=== PATIENT | female | born 1945 | race Caucasian/White ===

== ENCOUNTER 2023-01-04 13:36 | Outpatient (REF) | payer MEDICARE, SELFPAY ==
[2023-01-04 15:10] LABS: Bilirubin Urine NEGATIVE (NEGATIVE); Blood Urine SMALL (NEGATIVE); Clarity Urine CLOUDY (CLEAR); Color Urine YELLOW (YELLOW); Glucose Urine UA NEGATIVE (NEGATIVE); Ketones Urine NEGATIVE (NEGATIVE); Leukocyte Esterase Urine LARGE (NEGATIVE); Nitrite Urine POSITIVE (NEGATIVE); Protein Urine 100 mg/dL (NEG/TRACE); Urobilinogen Urine 0.2 EU/dL (0.2-1.0)
[2023-01-04 15:33] LABS: Bacteria Urine LARGE #/HPF (NONE SEEN); Cast Seen? NONE SEEN #/LPF (NONE SEEN); Crystals Seen? None Seen #/HPF (None Seen); Mucus Urine NONE SEEN (NONE SEEN); Squamous Epithelial Cell Urine NONE SEEN #/LPF (NONE/RARE); WBC Urine >100 #/HPF (NONE SEEN)
== END 2023-01-04 13:37 | disposition home or self-care (01) ==
LOC: LAB 13:36
PROVIDERS: PCP Family Medicine; Visit Provider Family Medicine
DX: R30.0 Dysuria (principal)
CPT/HCPCS: 81001; 87086; 87150; 87186

== ENCOUNTER 2023-01-06 13:52 | Inpatient (IN) | payer MEDICARE, SELFPAY ==
[2023-01-06] VITALS (9 sets, daily range): BP systolic 116–120; BP diastolic 67–76; PULSE 46–100; RESP 16–18; TEMP 36.3–36.4; O2SAT 91–99; BMI 24.4; BMI 24.8
--- NOTE | 2023-01-06 14:18 | ECG_ITS ---
[facility] Test Date: 2023-01-06 Pat Name: JOSSELINE ROSENBERG Department: Room: - Gender: Female [employer] Seiner: : 1945 Requested By: SOCORRO SNEED Order Number: [id number] Reading MD: SOCORRO SNEED Measurements Intervals [address] Rate: 44 P: 56 ID: [id number] QRS: 9 QRSD: 92 T: 178 QT: 390 QTc: 341 Interpretive Statements 1130 Sinus bradycardia 2231 First degree AV block [address] depression 4564 Twave abnormality, possible lateral ischemia 8305 Short QTc interval 9150 abnormal ECG No previous ECG available for comparison Electronically Signed On 01-07-2023 6:53:27 EDT by SOCORRO SNEED
--- NOTE | 2023-01-06 14:38 | CT_ITS ---
The [address] [address] Patient Name: JOSSELINE Mckeon CASE MRN: [id number] date: 1945 Sex: F Assigned Patient Location: ER Current Patient Location: ER Accession/Order Number: [id number] Exam Date: 01/06/2023 13:10 Report Date: 01/06/2023 15:28 At the request of: BUDDY ASH Procedure: CT head/brain wo con EXAM: CT head/brain wo con HISTORY: home COMPARISON: 10/22/2022 TECHNIQUE: Axial CT images were obtained of the head without intravenous contrast. Multiplanar reconstructions were performed. FINDINGS: No acute intracranial hemorrhage. No acute loss of lowe/white differentiation. 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 Chronic encephalomalacia is noted in bilateral occipital lobes. Small chronic lacunar infarctions are present in the left thalamus and right morris. The ventricles and sulci are normal in appearance. The osseous structures are unremarkable. No soft tissue abnormality identified. The paranasal sinuses and mastoid air cells are clear. IMPRESSION: 1. No acute intracranial abnormality. 2. Chronic ischemic changes unchanged from the previous exam, as described above. Electronically authenticated by: BENJAMIN BACK Date: 01/06/2023 15:28
--- NOTE | 2023-01-06 14:38 | XR_ITS ---
The [address] [address] Patient Name: JOSSELINE Mckeon CASE MRN: [id number] date: 1945 Sex: F Assigned Patient Location: ER Current Patient Location: ER Accession/Order Number: [id number] Exam Date: 01/06/2023 14:50 Report Date: 01/06/2023 15:15 At the request of: BUDDY ASH Procedure: XR chest 1V EXAMINATION: XR chest 1V HISTORY: confusion COMPARISON: 10/24/2022 TECHNIQUE: AP portable FINDINGS: LUNGS: Patchy opacities right mid lung and left lung base VASCULATURE: No increased pulmonary vasculature. PLEURA: No pneumothorax. Elevated right hemidiaphragm CARDIAC: No cardiomegaly or cardiac silhouette abnormality. MEDIASTINUM: No visible mass or adenopathy. Aortic atherosclerosis BONES: No fracture or visible bone lesion. OTHER: Negative. IMPRESSION: Right mid and left lung base infiltrates Electronically authenticated by: JONO CANAS Date: 01/06/2023 15:15
[2023-01-06 15:03] LABS: Basophils Percent Auto 0.5 % (0.2-2.0); Eosinophils Absolute Auto 0.2 10^3/uL (0.0-0.7); Eosinophils Percent Auto 2.3 % (0.9-7.0); Hematocrit 34.2 % (36.0-48.0); Hemoglobin 10.7 g/dL (12.0-16.0); Immature Granulocytes Abs Auto 0.02 10^3/uL (0.00-0.03); Immature Granulocytes Pct Auto 0.3 % (0.0-0.5); Lymphocytes Percent Auto 27.3 % (20.5-60.0); Mean Corpuscular HGB Conc 31.3 g/dL (29.9-35.2); Mean Corpuscular Hemoglobin 28.2 pg (26.7-34.0); Mean Platelet Volume 10.7 fL (9.5-13.5); Monocytes Absolute Auto 0.4 10^3/uL (0.3-0.8); Monocytes Percent Auto 5.3 % (1.7-12.0); Neutrophils Absolute Auto 4.7 10^3/uL (1.4-6.5); Neutrophils Percent Auto 64.3 % (43.0-75.0); Platelet Count 137 10^3/uL (150-450); Red Cell Distribution Width 16.4 % (11.0-15.0); White Blood Count 7.3 10^3/uL (4.0-11.0)
[2023-01-06 15:17] LABS: Acetone NEGATIVE (NEGATIVE)
[2023-01-06 15:18] LABS: INR 1.02; Prothrombin Time 10.8 sec (9.0-11.6)
[2023-01-06 15:28] LABS: Alanine Aminotransferase 183 U/L (14-59); Albumin Globulin Ratio 0.7; Alkaline Phosphatase 202 U/L (46-116); Anion Gap 10.9; Aspartate Amino Transferase 83 U/L (15-37); BUN Creatinine Ratio 19.9; Bilirubin Total 0.4 mg/dL (0.2-1.0); Calcium 9.7 mg/dL (8.5-10.1); Carbon Dioxide 22.3 mmol/L (21.0-32.0); Chloride 103 mmol/L (98-107); Estimated GFR (African America 26 (>=60); Estimated GFR (Non-African Ame 22 (>=60); Globulin 4.5 g/dL; Glucose 232 mg/dL (74-106); Potassium 4.2 mmol/L (3.5-5.1); Sodium 132 mmol/L (136-145); Total Protein 7.5 g/dL (6.4-8.2); Troponin I High Sensitivity 18.3 pg/mL (4.0-51.3)
[2023-01-06 15:30] LABS: Lactate/Lactic Acid 2.2 mmol/L (0.4-2.0)
[2023-01-06 15:37] LABS: Glucometer 259 mg/dL (74-106)
[2023-01-06] MEDS: ONDANSETRON PF 4 MG/2 ML VIAL IV (15:38)
[2023-01-06] MEDS: 0.9 % SODIUM CHLORIDE 1,000 ML 1000 ML IV (15:39)
[2023-01-06] MEDS: IMIPENEM/CILASTATIN SODIUM 1,000 MG in 0.9 % SODIUM CHLORIDE 100 ML 100 MG IV (15:40)
--- NOTE | 2023-01-06 15:55 | ED.GENADUL1 ---
HPI - General Adult General Chief complaint: Altered Mental Status Stated complaint: UTI COMPLAINTS Time Seen by Provider: 01/06/23 14:00 Source: patient and family Mode of arrival: Wheelchair Limitations: no limitations History of Present Illness HPI narrative: 77-year-old female was brought to the emergency room by family members with chief complaint of a known urinary tract infection and altered mental status. Patient's family take a urine into the doctor's office two days ago. Doctor's office notified them today and she positive urinary tract infection with Escherichia coli. Patient also has a history of confusion, altered mental status. They states she's had decreased by mouth intake and confusion over last forty-eight hours. Patient is alert and will answer questions about self. Otherwise inappropriate answers. Related Data Home Medications Medication Instructions Recorded Confirmed amitriptyline 50 mg tablet 50 mg PO .at bedtime 01/06/23 01/06/23 aspirin 162.5 mg capsule,extended 162 mg PO DAILY 01/06/23 01/06/23 release 24 hr budesonide 0.5 mg/2 mL suspension 0.5 mg inhalation BID 01/06/23 01/06/23 for nebulization (Pulmicort) carvedilol 6.25 mg tablet 6.25 mg PO BID 01/06/23 01/06/23 cetirizine 10 mg capsule (Zyrtec) 10 mg PO DAILY PRN allergy symptoms 01/06/23 01/06/23 hydralazine 10 mg tablet 10 mg PO TID 01/06/23 01/06/23 insulin glargine 100 unit/mL (3 40 unit subcut DAILY 01/06/23 01/06/23 mL) subcutaneous pen (Lantus Solostar U-100 Insulin) insulin lispro 100 unit/mL 1 sliding scale dose subcut 01/06/23 01/06/23 subcutaneous solution USEASDIRECTD levalbuterol HCl 1.25 mg/3 mL 1.25 mg inhalation Q8H 01/06/23 01/06/23 solution for nebulization levothyroxine 50 mcg capsule 50 mcg PO DAILY 01/06/23 01/06/23 liothyronine 5 mcg tablet 10 mcg PO DAILY 01/06/23 01/06/23 lorazepam 0.5 mg tablet 0.5 mg PO BID PRN anxiety 01/06/23 01/06/23 lorazepam 2 mg tablet 2 mg PO .at bedtime 01/06/23 01/06/23 memantine 28 mg capsule 28 mg PO DAILY 01/06/23 01/06/23 sprinkle,extended release 24hr montelukast 10 mg tablet 10 mg PO QPM 01/06/23 01/06/23 (Singulair) pantoprazole 40 mg tablet,delayed 40 mg PO DAILY 01/06/23 01/06/23 release promethazine 25 mg tablet 25 mg PO Q4H PRN nausea 01/06/23 01/06/23 rosuvastatin 40 mg tablet 40 mg PO DAILY 01/06/23 01/06/23 tiotropium bromide 2.5 2 inh inhalation DAILY 01/06/23 01/06/23 mcg/actuation mist for inhalation (Spiriva Respimat) tramadol 50 mg tablet 50 mg PO Q8H PRN pain 01/06/23 01/06/23 Allergies Allergy/AdvReac Type Severity Reaction Status Date / Time doxycycline Allergy Severe Nausea Verified 01/06/23 15:34 ciprofloxacin [From Cipro] AdvReac Severe Nausea Verified 01/06/23 15:34 glycerin AdvReac Severe Diarrhea Verified 01/06/23 15:34 ibuprofen [From Motrin] AdvReac Severe Nausea Verified 01/06/23 15:34 metformin AdvReac Severe Nausea Verified 01/06/23 15:34 moxifloxacin [From Avelox] AdvReac Severe Diarrhea Verified 01/06/23 15:34 sulfamethoxazole AdvReac Severe Nausea Verified 01/06/23 15:34 [From Bactrim] trimethoprim [From Bactrim] AdvReac Severe Nausea Verified 01/06/23 15:34 Review of Systems ROS Narrative All Systems are negative except as noted/marked.All systems reviewed and otherwise negative Exam Narrative Exam Narrative: Patient is a All Systems are negative except as noted/marked.All systems reviewed and otherwise negative Nurses note and vital signs reviewed and patient is not hypoxic. General: The patient appears confused dehydrated.. Patient is resting comfortably on cart. Skin: Warm, dry, no pallor noted. There is no rash noted. Head: Normocephalic, atraumatic Eye: Normal conjunctiva, no drainage, EOMI. PERRL Ears, Nose, Mouth, and Throat: oral mucosa is Dry. Nares patent. Mouth without vesicles. Ear canals patent. Tm's without Erythema Cardiovascular: Sinus bradycardia Respiratory: Patient is in no distress, no accessory muscle use, lungs are clear to auscultation, no wheezing, rales or rhonchi Back: non-tender, no CVA tenderness bilaterally to percussion. GI: Normal bowel sounds, no tenderness to palpation, no masses appreciated. No rebound, guarding, or rigidity noted. Musculoskeletal: The patient has no evidence of calf tenderness, no pitting edema, symmetrical pulses noted bilaterally Neurological: A&O Self Psychiatric: Fusion history of dementia Constitutional Vital Signs, click to edit/add: Last Vital Signs Temp 97.4 F L 01/06/23 14:17 Pulse 53 L 01/06/23 16:35 Resp 16 01/06/23 14:17 BP 119/67 01/06/23 14:17 Pulse Ox 95 01/06/23 14:17 Course Vital Signs Vital signs: Vital Signs Temperature 97.4 F L 01/06/23 14:17 Pulse Rate 48 L 01/06/23 14:17 Respiratory Rate 16 01/06/23 14:17 Blood Pressure 119/67 01/06/23 14:17 Pulse Oximetry 95 01/06/23 14:17 Temperature 97.4 F L 01/06/23 14:17 Pulse Rate 53 L 01/06/23 16:35 Respiratory Rate 16 01/06/23 14:17 Blood Pressure 119/67 01/06/23 14:17 Pulse Oximetry 95 01/06/23 14:17 Medical Decision Making [facility] Narrative Medical decision making narrative: Agent presents emergency room chief complaint of a known urinary tract infection. Urinalysis culture was positive for Escherichia coli. Cultures the bilirubin was reviewed patient was started here in the emergency room with IV imipenem. Patient blood work is reviewed she hasn't low sodium of one thirty-two elevated BUN/creatinine forty-four and 2.21 slightly higher than previous BUN/creatinine in October 2022. Anterior cruciate ligament tear also elevated today at eighty-three or one eighty-three. Patient is also positive for lactic acid 2.2. She has no white blood cell count. Chest x-ray shows a bilateral pneumonia as well. Patient is a Dr. Sexton patient. Dr. thornton spoke to Dr. june regarding this patient's care. He agrees with plan of care for admission for this patient. Diagnosis of dehydration, altered mental status, pneumonia, hyponatremia and urinary tract infection. IV antibiotics were started here in emergency room. Initial lactic acid is known. Repeat lactic acid is pending.She was also given IV fluids here in the emergency room. She is stable at time. EKG was reviewed and showed a sinus bradycardia with first-degree AV block. This is new compared to previous EKG on October 22. She is rate was a sinus bradycardia at 44 bpm. Medical Records Medical records reviewed: Yes I reviewed the patient's medical records Lab Data Lab results reviewed: Yes I reviewed the patient's lab results Labs: Lab Results 01/06/23 01/06/23 Range/Units 14:19 15:28 WBC 7.3 (4.0-11.0) 10^3/uL RBC 3.80 L (4.20-5.40) 10^6/uL Hgb 10.7 L (12.0-16.0) g/dL Hct 34.2 L (36.0-48.0) % MCV 90.0 (81.0-99.0) fL MCH 28.2 (26.7-34.0) pg MCHC 31.3 (29.9-35.2) g/dL RDW 16.4 H (11.0-15.0) % Plt Count 137 L (150-450) 10^3/uL MPV 10.7 (9.5-13.5) fL Neut % (Auto) 64.3 (43.0-75.0) % Lymph % (Auto) 27.3 (20.5-60.0) % Vermilion % (Auto) 5.3 (1.7-12.0) % Eos % (Auto) 2.3 (0.9-7.0) % Baso % (Auto) 0.5 (0.2-2.0) % Neut # (Auto) 4.7 (1.4-6.5) 10^3/uL Lymph # (Auto) 2.0 (1.2-3.8) 10^3/uL Vermilion # (Auto) 0.4 (0.3-0.8) 10^3/uL Eos # (Auto) 0.2 (0.0-0.7) 10^3/uL Baso # (Auto) 0.0 (0.0-0.1) 10^3/uL Abs Immat Gran (auto) 0.02 (0.00-0.03) 10^3/uL Imm/Tot Granulo (auto) 0.3 (0.0-0.5) % PT 10.8 (9.0-11.6) sec INR 1.02 Sodium 132 L (136-145) mmol/L Potassium 4.2 (3.5-5.1) mmol/L Chloride 103 (98-107) mmol/L Carbon Dioxide 22.3 (21.0-32.0) mmol/L Anion Gap 10.9 BUN 44.0 H (7.0-18.0) mg/dL Creatinine 2.21 H (0.55-1.02) mg/dL Est GFR ( Amer) 26 L (>=60) Est GFR (Non-Af Amer) 22 L (>=60) BUN/Creatinine Ratio 19.9 Glucose 232 H (74-106) mg/dL Lactate 2.2 H* (0.4-2.0) mmol/L Calcium 9.7 (8.5-10.1) mg/dL Total Bilirubin 0.4 (0.2-1.0) mg/dL AST 83 H (15-37) U/L ALT 183 H (14-59) U/L Alkaline Phosphatase 202 H (46-116) U/L Troponin I High Sens 18.3 (4.0-51.3) pg/mL Total Protein 7.5 (6.4-8.2) g/dL Albumin 3.0 L (3.4-5.0) g/dL Globulin 4.5 g/dL Albumin/Globulin Ratio 0.7 Acetone, Qual Negative (NEGATIVE) POC Glucose 259 H (74-106) mg/dL ECG Data Attestation: ?I have reviewed the pertinent ECG results. Interpretation: 1426 Is bradycardia with a rate of [address] elevation or depression, decreased right compared to EKG on 10/22/2022. Discharge Plan Discharge Chief Complaint: Altered Mental Status Clinical Impression: Chronic renal insufficiency, Acute UTI, Altered mental status, Pneumonia, Acute hyponatremia Patient Disposition: Admitted As Inpatient Time of Disposition Decision: 15:53 Condition: Fair
[2023-01-06 18:15] LABS: Lactate/Lactic Acid 1.2 mmol/L (0.4-2.0)
[2023-01-06] MEDS: LACTATED RINGER'S SOLUTION 1,000 ML 125 ML IV (18:39)
[2023-01-06] MEDS: LEVALBUTEROL HCL 1.25 MG/3 ML VIAL NEB IH (20:22)
[2023-01-06] MEDS: IPRATROPIUM BROMIDE 0.5 MG/2.5 ML VIAL.NEB IH (20:23)
[2023-01-06] MEDS: BUDESONIDE 0.5 MG/2 ML AMPULE NEB IH (20:23)
[2023-01-06] MEDS: TRAMADOL HCL 50 MG TABLET PO (20:56)
[2023-01-06] MEDS: CARVEDILOL 6.25 MG TABLET PO (20:56)
[2023-01-06] MEDS: MONTELUKAST SODIUM 10 MG TABLET PO (20:56)
[2023-01-06] MEDS: AMITRIPTYLINE HCL 50 MG TABLET PO (20:56)
[2023-01-06] MEDS: INSULIN ASPART 300 UNIT/3 ML PEN SUBQ (20:59)
[2023-01-06] MEDS: LORAZEPAM 1 MG TABLET 2 MG PO (21:04)
[2023-01-06] MEDS: L. ACIDOPHILUS/L.BULGARICUS 1 PACKET GRAN.PACK PO (21:15)
[2023-01-07] VITALS (20 sets, daily range): BP systolic 133–156; BP diastolic 73–80; PULSE 47–67; RESP 14–18; TEMP 36.6–38; O2SAT 83–98
[2023-01-07] MEDS: LEVALBUTEROL HCL 1.25 MG/3 ML VIAL NEB IH ×4 (04:30→20:54)
[2023-01-07] MEDS: IPRATROPIUM BROMIDE 0.5 MG/2.5 ML VIAL.NEB IH ×4 (04:30→20:54)
[2023-01-07 06:11] LABS: Basophils Percent Auto 0.4 % (0.2-2.0); Eosinophils Absolute Auto 0.2 10^3/uL (0.0-0.7); Eosinophils Percent Auto 1.9 % (0.9-7.0); Immature Granulocytes Abs Auto 0.02 10^3/uL (0.00-0.03); Immature Granulocytes Pct Auto 0.3 % (0.0-0.5); Lymphocytes Absolute Auto 1.2 10^3/uL (1.2-3.8); Lymphocytes Percent Auto 15.3 % (20.5-60.0); Mean Corpuscular HGB Conc 31.3 g/dL (29.9-35.2); Mean Corpuscular Hemoglobin 28.4 pg (26.7-34.0); Mean Corpuscular Volume 90.9 fL (81.0-99.0); Monocytes Absolute Auto 0.5 10^3/uL (0.3-0.8); Monocytes Percent Auto 5.8 % (1.7-12.0); Neutrophils Percent Auto 76.3 % (43.0-75.0); Platelet Count 116 10^3/uL (150-450); Red Blood Count 3.52 10^6/uL (4.20-5.40); Red Cell Distribution Width 16.3 % (11.0-15.0); White Blood Count 7.9 10^3/uL (4.0-11.0)
[2023-01-07] MEDS: LACTATED RINGER'S SOLUTION 1,000 ML 125 ML IV ×3 (06:11→22:06)
[2023-01-07 06:18] LABS: Anion Gap 15.4; Carbon Dioxide 19.2 mmol/L (21.0-32.0); Chloride 105 mmol/L (98-107); Glucose 138 mg/dL (74-106); Potassium 4.6 mmol/L (3.5-5.1); Sodium 135 mmol/L (136-145)
[2023-01-07 06:19] LABS: Alanine Aminotransferase 184 U/L (14-59); Albumin Globulin Ratio 0.6; Albumin Level 2.5 g/dL (3.4-5.0); Alkaline Phosphatase 214 U/L (46-116); Aspartate Amino Transferase 144 U/L (15-37); BUN Creatinine Ratio 19.9; Bilirubin Total 0.6 mg/dL (0.2-1.0); Calcium 9.1 mg/dL (8.5-10.1); Estimated GFR (African America 33 (>=60); Estimated GFR (Non-African Ame 27 (>=60); Globulin 4.3 g/dL; Magnesium 1.7 mg/dL (1.8-2.4); Total Protein 6.8 g/dL (6.4-8.2)
[2023-01-07] MEDS: IMIPENEM/CILASTATIN SODIUM 500 MG in 0.9 % SODIUM CHLORIDE 100 ML 100 MG IV ×2 (08:44→22:14)
[2023-01-07] MEDS: OMEPRAZOLE 40 MG CAPSULE.DR PO (09:16)
[2023-01-07] MEDS: LIOTHYRONINE SODIUM 5 MCG TABLET 10 MCG PO (09:16)
[2023-01-07] MEDS: LEVOTHYROXINE SODIUM 25 MCG TABLET 50 MCG PO (09:16)
[2023-01-07] MEDS: MEMANTINE HCL 28 MG CAP XR PO (09:16)
[2023-01-07] MEDS: CARVEDILOL 6.25 MG TABLET PO (09:16)
[2023-01-07] MEDS: CETIRIZINE HCL 10 MG TABLET PO (09:16)
[2023-01-07] MEDS: ASPIRIN 81 MG TABLET.DR 162 MG PO (09:16)
--- NOTE | 2023-01-07 09:51 | P.HP_ITS ---
H&P: HPI History of Present Illness Chief complaint: UTI COMPLAINTS dx-uti confusion Narrative: Patient has been having increasing weakness at home. Culture was obtained as an outpatient. Organism is a resistant organism sensitive only to oral Macrobid but patient's condition has been deteriorating significant dehydration and will admit patient for IV antibiotics Review of Systems ROS Constitutional Denies: fever or chills Eyes Denies: change in vision Cardiovascular Denies: chest pain or palpitations Respiratory Denies: shortness of breath or cough Musculoskeletal Denies: back pain PFSH PFS Family History (Updated 01/06/23 @ 17:14 by Carolina Holley RN) Mother Family history of CHF (congestive heart failure) Family history of hypertension Family history of myocardial infarction Father Family history of COPD (chronic obstructive pulmonary disease) Sister Family history of stroke Other Family history of cancer Family history of diabetes mellitus Meds Home Medications and Allergies Home Medications Medication Instructions Recorded Confirmed Type amitriptyline 50 mg tablet 50 mg PO .at bedtime 01/06/23 01/06/23 History aspirin 162.5 mg capsule,extended 162 mg PO DAILY 01/06/23 01/06/23 History release 24 hr budesonide 0.5 mg/2 mL suspension 0.5 mg inhalation BID 01/06/23 01/06/23 History for nebulization (Pulmicort) carvedilol 6.25 mg tablet 6.25 mg PO BID 01/06/23 01/06/23 History cetirizine 10 mg capsule (Zyrtec) 10 mg PO DAILY PRN allergy symptoms 01/06/23 01/06/23 History hydralazine 10 mg tablet 10 mg PO TID 01/06/23 01/06/23 History insulin glargine 100 unit/mL (3 40 unit subcut DAILY 01/06/23 01/06/23 History mL) subcutaneous pen (Lantus Solostar U-100 Insulin) insulin lispro 100 unit/mL 1 sliding scale dose subcut 01/06/23 01/06/23 History subcutaneous solution USEASDIRECTD levalbuterol HCl 1.25 mg/3 mL 1.25 mg inhalation Q8H 01/06/23 01/06/23 History solution for nebulization levothyroxine 50 mcg capsule 50 mcg PO DAILY 01/06/23 01/06/23 History liothyronine 5 mcg tablet 10 mcg PO DAILY 01/06/23 01/06/23 History lorazepam 0.5 mg tablet 0.5 mg PO BID PRN anxiety 01/06/23 01/06/23 History lorazepam 2 mg tablet 2 mg PO .at bedtime 01/06/23 01/06/23 History memantine 28 mg capsule 28 mg PO DAILY 01/06/23 01/06/23 History sprinkle,extended release 24hr montelukast 10 mg tablet 10 mg PO QPM 01/06/23 01/06/23 History (Singulair) pantoprazole 40 mg tablet,delayed 40 mg PO DAILY 01/06/23 01/06/23 History release promethazine 25 mg tablet 25 mg PO Q4H PRN nausea 01/06/23 01/06/23 History rosuvastatin 40 mg tablet 40 mg PO DAILY 01/06/23 01/06/23 History tiotropium bromide 2.5 2 inh inhalation DAILY 01/06/23 01/06/23 History mcg/actuation mist for inhalation (Spiriva Respimat) tramadol 50 mg tablet 50 mg PO Q8H PRN pain 01/06/23 01/06/23 History Allergies Allergy/AdvReac Type Severity Reaction Status Date / Time doxycycline Allergy Severe Nausea Verified 01/06/23 15:34 ciprofloxacin [From Cipro] AdvReac Severe Nausea Verified 01/06/23 15:34 glycerin AdvReac Severe Diarrhea Verified 01/06/23 15:34 ibuprofen [From Motrin] AdvReac Severe Nausea Verified 01/06/23 15:34 metformin AdvReac Severe Nausea Verified 01/06/23 15:34 moxifloxacin [From Avelox] AdvReac Severe Diarrhea Verified 01/06/23 15:34 sulfamethoxazole AdvReac Severe Nausea Verified 01/06/23 15:34 [From Bactrim] trimethoprim [From Bactrim] AdvReac Severe Nausea Verified 01/06/23 15:34 Exam Constitutional Vital Signs, click to edit/add: Last Vital Signs Temp 100.4 F H 01/07/23 06:00 Pulse 52 L 01/07/23 07:53 Resp 18 01/07/23 06:00 BP 133/74 H 01/07/23 06:00 Pulse Ox 97 01/07/23 06:00 O2 Del Method Nasal Cannula 01/07/23 06:00 O2 Flow Rate 2 01/07/23 06:00 Documenting provider has reviewed patient's vital signs: yes Common normals: apparent distress and negative for oriented x3 General appearance: lethargic; not comfortable Chest Common normals: inspection of chest normal Cardio Common normals: regular rate and regular rhythm GI Common normals: soft to palpation; tender Palpation: tender and guarding Extremity Common normals: normal to inspection Results Labs Labs: Short CBC 01/06/23 01/07/23 Range/Units 14:19 04:00 WBC 7.3 7.9 (4.0-11.0) 10^3/uL Hgb 10.7 L 10.0 L (12.0-16.0) g/dL Hct 34.2 L 32.0 L (36.0-48.0) % Plt Count 137 L 116 L (150-450) 10^3/uL BMP 01/06/23 01/07/23 14:19 04:00 Sodium 132 L 135 L Potassium 4.2 4.6 Chloride 103 105 Carbon Dioxide 22.3 19.2 L BUN 44.0 H 36.0 H Creatinine 2.21 H 1.81 H Glucose 232 H 138 H Calcium 9.7 9.1 Liver Function 01/06/23 01/07/23 Range/Units 14:19 04:00 Total Bilirubin 0.4 0.6 (0.2-1.0) mg/dL AST 83 H 144 H (15-37) U/L ALT 183 H 184 H (14-59) U/L Alkaline Phosphatase 202 H 214 H (46-116) U/L Albumin 3.0 L 2.5 L (3.4-5.0) g/dL Assessment and Plan Assessment and Plan (1) Acute UTI: (2) Chronic renal insufficiency: (3) Altered mental status: (4) Acute hyponatremia: (5) Elevated liver enzymes: (6) Thrombocytopenia: (7) Anemia, chronic renal failure: (8) Hypomagnesemia: Plan Altered mental status secondary to acute UTI with significant dehydration fe ril, thrombocytopenia, acute kidney injury on top of chronic kidney disease and elevated liver function test-this is a multiple drug-resistant infection, is sensitive to imipenem so patient was started on that yesterday. Overall patient does not appear significantly improved from the previous day. Continue with current medications noted on sensitivities Thrombocytopenia-complicated by the above-monitor daily Iron deficiency anemia on top of anemia of chronic kidney disease-monitor daily Bradycardia-Not related to medications at this point, will monitor daily COPD-doubt acute exacerbation will maintain home medications Hypomagnesemia-May need supplementation Elevated liver function test-some mild diffuse abdominal tenderness-check ultrasound Unable to improve patient over the first 24 hours so maintain patient as inpatient status with continuous medical management likely lasting 2 to 3 days
--- NOTE | 2023-01-07 09:52 | US_ITS ---
The [address] [address] Patient Name: JOSSELINE G CASE MRN: [id number] date: 1945 Sex: F Assigned Patient Location: Current Patient Location: Accession/Order Number: [id number] Exam Date: 01/07/2023 10:45 Report Date: 01/07/2023 11:24 At the request of: SOCORRO SNEED Procedure: US right upper quadrant EXAM: US right upper quadrant HISTORY: elevated liver COMPARISON: None. TECHNIQUE: Right upper abdominal ultrasound including grayscale and Doppler imaging. FINDINGS: Right/left pleural space: No effusion. Liver: Small liver with coarse echotexture and mildly nodular contour, likely fibrotic changes/early cirrhosis. Correlation with elastography US is recommended. Portal vein: Normal hepatopedal flow. Gallbladder: Cholecystectomy. Focal tenderness: No right upper quadrant tenderness. Intrahepatic biliary ducts: No intrahepatic biliary duct dilatation. Extra hepatic biliary duct measures 14 mm. Pancreas: No abnormality demonstrated. Right kidney: Increased cortical echogenicity. No hydronephrosis. The right kidney measures 8.6 cm in length. There is a 1.7 cm anechoic structure in the upper pole of the kidney, representing a simple cyst. Spleen: Normal size. Aorta: No aneurysm. Peritoneal space: No ascites visualized within the visualized upper abdomen. Additional findings: None. IMPRESSION: Small liver with coarse echotexture and mildly nodular contour, likely fibrotic changes/early cirrhosis. Correlation with elastography US is recommended. Increased right renal echogenicity, may represent medical renal disease. Electronically authenticated by: JOHANNA SHAH Date: 01/07/2023 11:24
[2023-01-07] MEDS: BUDESONIDE 0.5 MG/2 ML AMPULE NEB IH ×2 (10:14→20:54)
--- NOTE | 2023-01-07 10:19 | RESP.RT ---
Found pt with NC out of nares. Replaced NC on 2L and SpO2 recovered to 93%
[2023-01-08] VITALS (21 sets, daily range): BP systolic 112–135; BP diastolic 72–81; PULSE 49–59; RESP 16–20; TEMP 36.8–37.6; O2SAT 90–98
[2023-01-08] MEDS: ACETAMINOPHEN 500 MG TABLET 1000 MG PO (01:26)
[2023-01-08] MEDS: IPRATROPIUM BROMIDE 0.5 MG/2.5 ML VIAL.NEB IH ×4 (04:12→20:37)
[2023-01-08] MEDS: LEVALBUTEROL HCL 1.25 MG/3 ML VIAL NEB IH ×4 (04:12→20:36)
[2023-01-08 05:06] LABS: Basophils Percent Auto 0.3 % (0.2-2.0); Eosinophils Absolute Auto 0.1 10^3/uL (0.0-0.7); Eosinophils Percent Auto 1.9 % (0.9-7.0); Hematocrit 32.5 % (36.0-48.0); Hemoglobin 9.7 g/dL (12.0-16.0); Immature Granulocytes Abs Auto 0.02 10^3/uL (0.00-0.03); Immature Granulocytes Pct Auto 0.3 % (0.0-0.5); Lymphocytes Absolute Auto 1.3 10^3/uL (1.2-3.8); Lymphocytes Percent Auto 22.4 % (20.5-60.0); Mean Corpuscular HGB Conc 29.8 g/dL (29.9-35.2); Mean Corpuscular Hemoglobin 27.6 pg (26.7-34.0); Mean Corpuscular Volume 92.6 fL (81.0-99.0); Mean Platelet Volume 10.9 fL (9.5-13.5); Monocytes Absolute Auto 0.3 10^3/uL (0.3-0.8); Monocytes Percent Auto 5.6 % (1.7-12.0); Neutrophils Absolute Auto 4.1 10^3/uL (1.4-6.5); Neutrophils Percent Auto 69.5 % (43.0-75.0); Platelet Count 121 10^3/uL (150-450); Red Blood Count 3.51 10^6/uL (4.20-5.40); Red Cell Distribution Width 16.1 % (11.0-15.0); White Blood Count 5.9 10^3/uL (4.0-11.0)
[2023-01-08] MEDS: LACTATED RINGER'S SOLUTION 1,000 ML 125 ML IV (05:30)
[2023-01-08 05:44] LABS: Alanine Aminotransferase 124 U/L (14-59); Albumin Globulin Ratio 0.5; Albumin Level 2.3 g/dL (3.4-5.0); Alkaline Phosphatase 196 U/L (46-116); Anion Gap 10.2; Aspartate Amino Transferase 64 U/L (15-37); BUN Creatinine Ratio 15.5; Bilirubin Total 0.3 mg/dL (0.2-1.0); Calcium 9.2 mg/dL (8.5-10.1); Chloride 106 mmol/L (98-107); Estimated GFR (African America 34 (>=60); Estimated GFR (Non-African Ame 28 (>=60); Globulin 4.3 g/dL; Glucose 128 mg/dL (74-106); Magnesium 1.5 mg/dL (1.8-2.4); Potassium 4.2 mmol/L (3.5-5.1); Sodium 137 mmol/L (136-145); Total Protein 6.6 g/dL (6.4-8.2)
[2023-01-08] MEDS: L. ACIDOPHILUS/L.BULGARICUS 1 PACKET GRAN.PACK PO ×2 (09:09→21:45)
[2023-01-08] MEDS: MEMANTINE HCL 28 MG CAP XR PO (09:09)
[2023-01-08] MEDS: IMIPENEM/CILASTATIN SODIUM 500 MG in 0.9 % SODIUM CHLORIDE 100 ML 20 MG IV (09:09)
[2023-01-08] MEDS: ASPIRIN 81 MG TABLET.DR 162 MG PO (09:10)
[2023-01-08] MEDS: LIOTHYRONINE SODIUM 5 MCG TABLET 10 MCG PO (09:10)
[2023-01-08] MEDS: MAGNESIUM OXIDE 400 MG TABLET PO ×2 (09:11→21:45)
[2023-01-08] MEDS: LEVOTHYROXINE SODIUM 25 MCG TABLET 50 MCG PO (09:13)
[2023-01-08] MEDS: CARVEDILOL 6.25 MG TABLET PO (09:15)
[2023-01-08] MEDS: PROSTAT 15 GM PROTEIN/100 CAL 30 ML LIQUID PACKET PO ×2 (09:15→21:45)
[2023-01-08] MEDS: OMEPRAZOLE 40 MG CAPSULE.DR PO (09:15)
--- NOTE | 2023-01-08 10:29 | P.PN_ITS ---
Progress Note: Subjective Subjective Interval history: Much more awake today - strickland not recall me being here yesterday Exam Constitutional Vital Signs, click to edit/add: Last Vital Signs Temp 99.6 F 01/08/23 05:12 Pulse 52 L 01/08/23 09:52 Resp 18 01/08/23 05:12 BP 135/81 H 01/08/23 05:12 Pulse Ox 96 01/08/23 05:12 O2 Del Method Nasal Cannula 01/08/23 05:12 O2 Flow Rate 2 01/08/23 05:12 Documenting provider has reviewed patient's vital signs: yes Common normals: apparent distress and negative for oriented x3 General appearance: lethargic; not comfortable HENMT Common normals: normocephalic; oral mucous membranes not moist Chest Common normals: inspection of chest normal Cardio Common normals: regular rate and regular rhythm GI Common normals: soft to palpation; tender Palpation: tender and guarding Extremity Common normals: normal to inspection Progress Note: Objective Labs Labs: Short CBC 01/08/23 Range/Units 04:10 WBC 5.9 (4.0-11.0) 10^3/uL Hgb 9.7 L (12.0-16.0) g/dL Hct 32.5 L (36.0-48.0) % Plt Count 121 L (150-450) 10^3/uL BMP 01/08/23 04:10 Sodium 137 Potassium 4.2 Chloride 106 Carbon Dioxide 25.0 BUN 27.0 H Creatinine 1.74 H Glucose 128 H Calcium 9.2 Liver Function 01/08/23 Range/Units 04:10 Total Bilirubin 0.3 (0.2-1.0) mg/dL AST 64 H (15-37) U/L ALT 124 H (14-59) U/L Alkaline Phosphatase 196 H (46-116) U/L Albumin 2.3 L (3.4-5.0) g/dL Progress Note: A&P Assessment and Plan (1) Acute UTI: (2) Chronic renal insufficiency: (3) Altered mental status: (4) Acute hyponatremia: (5) Elevated liver enzymes: (6) Thrombocytopenia: (7) Anemia, chronic renal failure: (8) Hypomagnesemia: Plan Altered mental status secondary to acute UTI with significant dehydration febrile, thrombocytopenia, acute kidney injury on top of chronic kidney disease and elevated liver function test-this is a multiple drug-resistant infection, is sensitive to imipenem so patient was started on that yesterday.? COnt with plan - may need rehab - overal improved Thrombocytopenia-complicated by the above-monitor daily - Better Iron deficiency anemia on top of anemia of chronic kidney disease-monitor daily - down slightly Bradycardia-Not related to medications at this point, will monitor daily - some better COPD-doubt acute exacerbation will maintain home medications Hypomagnesemia - supplementation Hyponatremia - better Elevated liver function test-some mild diffuse abdominal tenderness-check ultrasound was fine - maybe early cirrhosis - levels stable Unable to improve patient over the first 24 hours so maintain patient as inpatient status with continuous medical management likely lasting 2 to 3 days
[2023-01-08] MEDS: BUDESONIDE 0.5 MG/2 ML AMPULE NEB IH ×2 (11:47→20:37)
[2023-01-08] MEDS: LACTATED RINGER'S SOLUTION 1,000 ML 60 ML IV (20:31)
[2023-01-08] MEDS: MONTELUKAST SODIUM 10 MG TABLET PO (20:33)
[2023-01-08] MEDS: IMIPENEM/CILASTATIN SODIUM 500 MG in 0.9 % SODIUM CHLORIDE 100 ML 100 MG IV (21:45)
[2023-01-09] VITALS (61 sets, daily range): BP systolic 83–202; BP diastolic 65–122; PULSE 46–94; RESP 14–18; TEMP 36.6–36.8; O2SAT 90–100; BMI 24.8
--- NOTE | 2023-01-09 | XR_ITS ---
[address] [address] Patient Name: JOSSELINE Mckeon CASE MRN: [id number] date: 1945 Sex: F Assigned Patient Location: MS Current Patient Location: ICU Accession/Order Number: [id number] Exam Date: 01/09/2023 19:55 Report Date: 01/09/2023 20:22 At the request of: EDELMIRA MARKER Procedure: XR chest 1V EXAM: XR chest 1V HISTORY: tube placement COMPARISON: Chest x-ray 01/06/2023 TECHNIQUE: Portable chest. FINDINGS: IMPRESSION: ET tube tip 2.7 cm proximal to the dominguez. Persistent linear consolidation within right mid rhonda-thorax. No acute parenchymal consolidation. Pacer paddle overlies the right hemithorax. Electronically authenticated by: JONO OCHOA Date: 01/09/2023 20:22
[2023-01-09] MEDS: TRAMADOL HCL 50 MG TABLET PO (03:12)
[2023-01-09] MEDS: LEVALBUTEROL HCL 1.25 MG/3 ML VIAL NEB IH ×4 (04:55→21:56)
[2023-01-09] MEDS: IPRATROPIUM BROMIDE 0.5 MG/2.5 ML VIAL.NEB IH ×4 (04:55→21:56)
[2023-01-09 06:02] LABS: Basophils Percent Auto 0.2 % (0.2-2.0); Eosinophils Absolute Auto 0.1 10^3/uL (0.0-0.7); Eosinophils Percent Auto 2.2 % (0.9-7.0); Hematocrit 29.1 % (36.0-48.0); Hemoglobin 9.5 g/dL (12.0-16.0); Immature Granulocytes Abs Auto 0.01 10^3/uL (0.00-0.03); Immature Granulocytes Pct Auto 0.2 % (0.0-0.5); Lymphocytes Absolute Auto 1.7 10^3/uL (1.2-3.8); Lymphocytes Percent Auto 25.8 % (20.5-60.0); Mean Corpuscular HGB Conc 32.6 g/dL (29.9-35.2); Mean Corpuscular Hemoglobin 28.9 pg (26.7-34.0); Mean Corpuscular Volume 88.4 fL (81.0-99.0); Mean Platelet Volume 10.5 fL (9.5-13.5); Monocytes Absolute Auto 0.3 10^3/uL (0.3-0.8); Monocytes Percent Auto 4.9 % (1.7-12.0); Neutrophils Absolute Auto 4.3 10^3/uL (1.4-6.5); Neutrophils Percent Auto 66.7 % (43.0-75.0); Platelet Count 119 10^3/uL (150-450); Red Blood Count 3.29 10^6/uL (4.20-5.40); White Blood Count 6.5 10^3/uL (4.0-11.0)
[2023-01-09 06:05] LABS: Alanine Aminotransferase 98 U/L (14-59); Albumin Globulin Ratio 0.6; Albumin Level 2.4 g/dL (3.4-5.0); Alkaline Phosphatase 207 U/L (46-116); Anion Gap 8.2; Aspartate Amino Transferase 44 U/L (15-37); BUN Creatinine Ratio 18.2; Bilirubin Total 0.3 mg/dL (0.2-1.0); Calcium 8.9 mg/dL (8.5-10.1); Carbon Dioxide 27.4 mmol/L (21.0-32.0); Chloride 104 mmol/L (98-107); Estimated GFR (African America 40 (>=60); Estimated GFR (Non-African Ame 33 (>=60); Glucose 131 mg/dL (74-106); Magnesium 1.3 mg/dL (1.8-2.4); Potassium 3.6 mmol/L (3.5-5.1); Sodium 136 mmol/L (136-145); Total Protein 6.4 g/dL (6.4-8.2)
[2023-01-09] MEDS: ASPIRIN 81 MG TABLET.DR 162 MG PO (08:03)
[2023-01-09] MEDS: LIOTHYRONINE SODIUM 5 MCG TABLET 10 MCG PO (08:03)
[2023-01-09] MEDS: IMIPENEM/CILASTATIN SODIUM 500 MG in 0.9 % SODIUM CHLORIDE 100 ML 100 MG IV ×2 (08:03→22:19)
[2023-01-09] MEDS: L. ACIDOPHILUS/L.BULGARICUS 1 PACKET GRAN.PACK PO (08:03)
[2023-01-09] MEDS: PROSTAT 15 GM PROTEIN/100 CAL 30 ML LIQUID PACKET PO (08:03)
[2023-01-09] MEDS: MAGNESIUM OXIDE 400 MG TABLET PO (08:03)
[2023-01-09] MEDS: MEMANTINE HCL 28 MG CAP XR PO (08:03)
[2023-01-09] MEDS: OMEPRAZOLE 40 MG CAPSULE.DR PO (08:04)
[2023-01-09] MEDS: LEVOTHYROXINE SODIUM 25 MCG TABLET 50 MCG PO (08:06)
[2023-01-09] MEDS: INSULIN DETEMIR 300 UNIT/3 ML INSULN.PEN 40 UNIT SUBQ (08:08)
--- NOTE | 2023-01-09 08:51 | P.PN_ITS ---
Progress Note: Subjective Subjective Interval history: Pretty awake today Exam Constitutional Vital Signs, click to edit/add: Last Vital Signs Temp 98.2 F 01/09/23 05:10 Pulse 60 01/09/23 08:04 Resp 18 01/09/23 05:10 BP 115/75 01/09/23 05:10 Pulse Ox 95 01/09/23 05:10 O2 Del Method Nasal Cannula 01/09/23 05:10 O2 Flow Rate 2 01/09/23 05:10 Documenting provider has reviewed patient's vital signs: yes Common normals: apparent distress and negative for oriented x3 General appearance: lethargic; not comfortable HENMT Common normals: normocephalic; oral mucous membranes not moist Chest Common normals: inspection of chest normal Cardio Common normals: regular rate and regular rhythm GI Common normals: soft to palpation; tender Palpation: tender and guarding Extremity Common normals: normal to inspection Progress Note: Objective Labs Labs: Short CBC 01/09/23 Range/Units 05:28 WBC 6.5 (4.0-11.0) 10^3/uL Hgb 9.5 L (12.0-16.0) g/dL Hct 29.1 L (36.0-48.0) % Plt Count 119 L (150-450) 10^3/uL BMP 01/09/23 05:28 Sodium 136 Potassium 3.6 Chloride 104 Carbon Dioxide 27.4 BUN 28.0 H Creatinine 1.54 H Glucose 131 H Calcium 8.9 Liver Function 01/09/23 Range/Units 05:28 Total Bilirubin 0.3 (0.2-1.0) mg/dL AST 44 H (15-37) U/L ALT 98 H (14-59) U/L Alkaline Phosphatase 207 H (46-116) U/L Albumin 2.4 L (3.4-5.0) g/dL Progress Note: A&P Assessment and Plan (1) Acute UTI: (2) Chronic renal insufficiency: (3) Altered mental status: (4) Acute hyponatremia: (5) Elevated liver enzymes: (6) Thrombocytopenia: (7) Anemia, chronic renal failure: (8) Hypomagnesemia: Plan Altered mental status secondary to acute UTI with significant dehydration fe brile, thrombocytopenia, acute kidney injury on top of chronic kidney disease and elevated liver function test-this is a multiple drug-resistant infection, is sensitive to imipenem so patient was started on that yesterday.? COnt with plan - may need rehab - overal improved - checking with family on home IV AB Thrombocytopenia-complicated by the above-monitor daily - Better Iron deficiency anemia on top of anemia of chronic kidney disease-monitor daily - down slightly Bradycardia-Not related to medications at this point, will monitor daily - some better COPD-doubt acute exacerbation will maintain home medications Hypomagnesemia - supplementation Hyponatremia - better Elevated liver function test-some mild diffuse abdominal tenderness-check ultrasound was fine - maybe early cirrhosis - levels stable Unable to improve patient over the first 24 hours so maintain patient as inpatient status with continuous medical management likely lasting 2 to 3 days
--- NOTE | 2023-01-09 09:17 | CM.NOTE ---
Rounds made with Dr. Minor, discussed group home with pt and need for continued IV antibiotic therapy. Pt refuses skilled at this time and is requesting home with HH. PT and OT will evaluate pt today, will follow for discharge needs.
--- NOTE | 2023-01-09 09:34 | CM.NOTE ---
Important Message From Medicare discussed with pt, pt verbalizes understanding and signs paper. Original given to pt and copy placed on pt's chart.
--- NOTE | 2023-01-09 11:01 | SWNOTE1 ---
ARELIS spoke with case management and plan is for pt to have IV antibiotics at discharge. Possible home with home health or skilled at facility, depending on what family wants. Pt has voiced to doctor she wants to go home with HH. ARELIS called and spoke with daughter, Poonam, and she is not she will be able to assist at home. During phone covnersation, Poonam received a phone call and will call ARELIS back.
--- NOTE | 2023-01-09 11:44 | SWNOTE1 ---
SW spoke with daughter again on phone and she did voice that she is not feeling well, but she will do IV's at home but she needs pt to cooperate at home and the family to cooperate. Pt's daughter did voice she is leaning towards pt going to [facility] instead but wants to know if pt will listen to her at home. Pt is not current with home health, they just ended a week ago. SW spoke with pt. Pt lives at home with her . SW let her know that SW spoke with Poonam and she is willing to do IV's at home for the 7 days, but she has to cooperate with her daughter. Pt did voice she wants to go home and her daughter is bossy. SW mentioned to pt that she could also go to SNF ([facility]) where she was before and get the IV'S there. Pt does not remember going to [facility]. During the conversation, Poonam called and she will be coming to hospital so we can discuss.
[2023-01-09] MEDS: BUDESONIDE 0.5 MG/2 ML AMPULE NEB IH ×2 (11:45→21:56)
--- NOTE | 2023-01-09 11:53 | DIETREC ---
Nutrition Recommendations: 1. Add Ensure HP once daily. Reviewed with
--- NOTE | 2023-01-09 13:47 | SWNOTE1 ---
ARELIS spoke with pt and daughter in room. It was decided for pt to go to [facility], pt is agreeable, stated she has to do. SW sent referral.
--- NOTE | 2023-01-09 15:46 | SWNOTE1 ---
[facility] is able to start precert. Precert started today.
[2023-01-09] MEDS: PROPOFOL 1,000 MG/100 ML VIAL 1.7 MG IV (20:15)
--- NOTE | 2023-01-09 20:31 | CT_ITS ---
The [address] [address] Patient Name: JOSSELINE G CASE MRN: [id number] date: 1945 Sex: F Assigned Patient Location: ICU Current Patient Location: ICU Accession/Order Number: [id number] Exam Date: 01/09/2023 22:45 Report Date: 01/09/2023 23:31 At the request of: SOCORRO MINOR Procedure: CT head/brain wo con NONCONTRAST CT SCAN OF THE HEAD CT head/brain wo con HISTORY:: obtunded in a 77-year-old female TECHNIQUE: Multiple axial images are taken from the level the vertex down to the base of the skull without the use of IV contrast. Images were then reconstructed in the sagittal and coronal planes. This exam was performed according to our departmental dose-optimization program which includes use of Automated Exposure Control, adjustment of the mA and/or kV according to patient size and/or use of iterative reconstruction technique. COMPARISON: CT head 01/06/2023 FINDINGS: Brain Parenchyma: There is global, diffuse atrophy with periventricular decreased white matter attenuation. No intracranial mass. No intracranial hemorrhage. 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 Extra-axial fluid collection: Extra-axial blood is demonstrated with subdural and subarachnoid blood. Ventricles: Intraventricular blood is seen in the lateral ventricles, the third ventricle and the fourth ventricle. Mastoid air cells: Normal. Sinuses: Normal. Cranium: No depressed skull fracture. Soft tissues: Normal. Orbits: Orbits demonstrate postoperative changes from prior cataract resection with prosthetic lens implant. CT/CT head/brain wo con IMPRESSION: 1. Acute, diffuse, bilateral subdural, subarachnoid and intraventricular blood. 2. Xiwpo-qh-rrwy midline shift of 3.7 mm at the septum pellucidum. 3. MRI may help better delineate. Critical results were NOTIFIED by TELEPHONE BY Dr. Sonia Tejeda MD to Dr. Minor At 01/09/2023 11:17 PM EDT. Electronically authenticated by: SONIA TEJEDA Date: 01/09/2023 23:31
[2023-01-09 20:53] LABS: Basophils Percent Auto 0.4 % (0.2-2.0); Eosinophils Absolute Auto 0.2 10^3/uL (0.0-0.7); Eosinophils Percent Auto 2.1 % (0.9-7.0); Hematocrit 30.6 % (36.0-48.0); Hemoglobin 9.9 g/dL (12.0-16.0); Immature Granulocytes Abs Auto 0.04 10^3/uL (0.00-0.03); Immature Granulocytes Pct Auto 0.5 % (0.0-0.5); Lymphocytes Absolute Auto 1.2 10^3/uL (1.2-3.8); Lymphocytes Percent Auto 14.5 % (20.5-60.0); Mean Corpuscular HGB Conc 32.4 g/dL (29.9-35.2); Mean Corpuscular Hemoglobin 28.8 pg (26.7-34.0); Monocytes Absolute Auto 0.3 10^3/uL (0.3-0.8); Monocytes Percent Auto 3.4 % (1.7-12.0); Neutrophils Absolute Auto 6.5 10^3/uL (1.4-6.5); Neutrophils Percent Auto 79.1 % (43.0-75.0); Platelet Count 141 10^3/uL (150-450); Red Blood Count 3.44 10^6/uL (4.20-5.40); Red Cell Distribution Width 16.2 % (11.0-15.0); White Blood Count 8.2 10^3/uL (4.0-11.0)
[2023-01-09 21:08] LABS: Partial Thromboplastin Time 25.5 sec (22.3-36.2)
[2023-01-09 21:10] LABS: Alanine Aminotransferase 101 U/L (14-59); Albumin Globulin Ratio 0.6; Albumin Level 2.5 g/dL (3.4-5.0); Alkaline Phosphatase 239 U/L (46-116); Anion Gap 12.5; Aspartate Amino Transferase 76 U/L (15-37); BUN Creatinine Ratio 18.5; Bilirubin Total 0.3 mg/dL (0.2-1.0); Calcium 8.9 mg/dL (8.5-10.1); Carbon Dioxide 30.1 mmol/L (21.0-32.0); Chloride 102 mmol/L (98-107); Estimated GFR (African America 39 (>=60); Estimated GFR (Non-African Ame 32 (>=60); Globulin 4.4 g/dL; Glucose 212 mg/dL (74-106); INR 1.05; Magnesium 1.5 mg/dL (1.8-2.4); Phosphorus 3.7 mg/dL (2.6-4.7); Potassium 3.6 mmol/L (3.5-5.1); Prothrombin Time 11.1 sec (9.0-11.6); Sodium 141 mmol/L (136-145); Total Protein 6.9 g/dL (6.4-8.2)
[2023-01-09 21:18] LABS: Creatine Kinase 42 U/L (26-192); Creatine Kinase MB <0.50 ng/mL (<=3.60); Troponin I High Sensitivity 43.9 pg/mL (4.0-51.3)
[2023-01-09 21:22] LABS: ABG PCO2 45.3 mmHg (35.0-45.0); PO2 ABG 89.5 mmHg (80.0-100.0); pH ABG 7.432 (7.350-7.450)
[2023-01-09 21:23] LABS: Allen Test POSITIVE (POSITIVE); Base Excess ABG 5.9 mmol/L (-2.0-2.0); Fractionated Inspired Oxygen 50 %; HCO3 ABG 30.2 mmol/L (22.0-26.0); O2 Mode VENTILATOR; Oxygen Saturation ABG 97.9 %; Puncture Site R RADIAL; Rate 14; Tidal Volume 500; Vent Mode A/C
[2023-01-09] MEDS: AMIODARONE IN DEXTROSE,ISO-OSM 150 MG/100 ML PIGGYBACK IV (21:29)
[2023-01-09] MEDS: AMIODARONE IN DEXTROSE,ISO-OSM 150 MG/100 ML PIGGYBACK 400 MG IV ×2 (21:51→22:22)
[2023-01-09] MEDS: AMIODARONE IN DEXTROSE,ISO-OSM 360 MG/200 ML PLAST..BAG 33 MG IV (21:59)
--- NOTE | 2023-01-09 22:33 | PC.NURSE ---
At approximately 1825 Fleet Manager changed Telemetry batteries on patient. Upon entering parts data writer woke patient to change batteries. She said hello and was alert when I informed her I would be her nurse laura. At approximately 1835 ICU library monitor Marielena notified parts data writer by phone that patient was showing VTach on the monitor. Fleet Manager entered patients room to find her skin appearing dusky, not breathing, and no pulse. CPR Code light hit. Fleet Manager began CPR immediately. Fleet Manager was relieved CPR by Global Analytics Head Hannah. Fleet Manager became recorder for the Code. Patient was transferred to ICU at 1950. 2000 Left Message with NOK to call hospital. 2004 NOK/Poonam [place] notified of ICU transfer at 1950.
[2023-01-09 22:42] LABS: ABG PCO2 43.5 mmHg (35.0-45.0); Allen Test POSITIVE (POSITIVE); Base Excess ABG 6.9 mmol/L (-2.0-2.0); Fractionated Inspired Oxygen 40 %; HCO3 ABG 30.8 mmol/L (22.0-26.0); Oxygen Saturation ABG 98.4 %; PO2 ABG 93.6 mmHg (80.0-100.0); Puncture Site R RADIAL; Rate 14; Tidal Volume 500; Vent Mode ACVC; pH ABG 7.458 (7.350-7.450)
[2023-01-10] VITALS (26 sets, daily range): BP systolic 36–126; BP diastolic 0–95; PULSE 56–67; RESP 14; TEMP 36.9; O2SAT 94–100
--- NOTE | 2023-01-10 00:39 | RESP.RT ---
Addendum entered by Melba Solo 01/10/23 00:41: Mode-Assist Control Original Note: Pt set up on Ventilator. Vent settings verbally giving by ER Dr. Swann. VT 500, RR 16, Peep 5, Fi02 50%.
--- NOTE | 2023-01-10 00:44 | RESP.RT ---
Vent settings changed per Dr. Beckett orders. Vt 500, RR decreased to 14, Peep 5, Fi02 50%.
--- NOTE | 2023-01-10 00:46 | RESP.RT ---
decreased Fi02 down to 40%
--- NOTE | 2023-01-10 00:54 | RESP.RT ---
Fi02 decreased from 50% down to 40%
--- NOTE | 2023-01-10 04:32 | PC.NURSE ---
Patient maintained on ventilator at this time. No reaction to pain. Pupils non responsive and dialated. Turned and repositioned with pillow to left side. IV's maintained. Amiodarone drip maintained. Family rotate in and out of room.
[2023-01-10] MEDS: IPRATROPIUM BROMIDE 0.5 MG/2.5 ML VIAL.NEB IH (04:34)
[2023-01-10] MEDS: LEVALBUTEROL HCL 1.25 MG/3 ML VIAL NEB IH (04:34)
--- NOTE | 2023-01-10 04:40 | RESP.RT ---
decreased Fi02 from 40% down to 30%
[2023-01-10] MEDS: AMIODARONE IN DEXTROSE,ISO-OSM 360 MG/200 ML PLAST..BAG 33 MG IV (06:15)
--- NOTE | 2023-01-10 09:52 | PM.DS1 ---
DS: Providers Provider Date of admission: 01/06/23 16:30 Primary care physician: Piyush Minor MD Consults: 01/06/23 16:23 Occupational Therapy Eval and Treat Routine Physical Therapy Eval and Treat Routine 01/08/23 10:29 Consult to Audit Clerks Supervisor Routine Reason for consult:: jail 01/10/23 06:00 Consult to Pulmonology Routine Consulting Provider: Terry Quarles DS: Diagnosis Discharge Diagnosis (1) Acute UTI: (2) Chronic renal insufficiency: (3) Altered mental status: (4) Acute hyponatremia: (5) Elevated liver enzymes: (6) Thrombocytopenia: (7) Anemia, chronic renal failure: (8) Hypomagnesemia: Assessment and plan: Cause of intracranial hemorrhage DS: Summary Hospital Course Hospital Course: Patient is admitted after failed outpatient treatment of acute UTI. The infected organism was highly resistant. It did respond to Macrobid but only minimally so. Patient not improving was admitted for IV therapy. Sensitive to imipenem she was doing well on that. We will looking at getting her ready for discharge to rehab. Patient became acutely obtunded and went into ventricular tachycardia. CPR was instituted and completed and patient was resuscitated back into normal sinus rhythm. She was transferred back to the intensive care unit. Placed on amiodarone drip. CT scan of head was done due to altered mental status persisting on ventilator. Without sedation. Found to have severe intracranial hemorrhage. Discussed with the family options. They did decided the patient would not want to be maintained long-term on a ventilator. She was not breathing above the ventilator at all. We let her rest overnight. With no significant improvement elected to make the patient DNR-cc. Patient was extubated and moments later. Cause of intracranial hemorrhage Time Spent with Patient Time attestation: Total time spent providing and/or coordinating discharge services: Exam Constitutional Vital Signs, click to edit/add: Last Vital Signs Temp 98.5 F 01/10/23 07:00 Pulse 58 L 01/10/23 07:00 Resp 14 01/10/23 06:18 BP 36/0 L 01/10/23 07:00 Pulse Ox 97 01/10/23 06:18 O2 Del Method Mechanical Ventilator 01/10/23 06:18 O2 Flow Rate 1 01/09/23 16:45 FiO2 30 01/10/23 04:51 DS: Data Data Completed and Pending Labs on day of discharge: Labs from last 24 hours 01/09/23 01/09/23 01/09/23 22:35 21:12 20:40 WBC 8.2 RBC 3.44 L Hgb 9.9 L Hct 30.6 L MCV 89.0 MCH 28.8 MCHC 32.4 RDW 16.2 H Plt Count 141 L MPV 10.0 Neut % (Auto) 79.1 H Lymph % (Auto) 14.5 L [place] % (Auto) 3.4 Eos % (Auto) 2.1 Baso % (Auto) 0.4 Neut # (Auto) 6.5 Lymph # (Auto) 1.2 [place] # (Auto) 0.3 Eos # (Auto) 0.2 Baso # (Auto) 0.0 Abs Immat Gran (auto) 0.04 H Imm/Tot Granulo (auto) 0.5 PT 11.1 INR 1.05 APTT 25.5 Puncture Site R radial R radial ABG pH 7.458 H 7.432 ABG pCO2 43.5 45.3 H ABG pO2 93.6 89.5 ABG HCO3 30.8 H 30.2 H ABG O2 Saturation 98.4 97.9 ABG Base Excess 6.9 H 5.9 H Horacio Test Positive Positive Vent Mode Acvc A/c FiO2 40 50 Tidal Volume 500 500 Sodium 141 Potassium 3.6 Chloride 102 Carbon Dioxide 30.1 Anion Gap 12.5 BUN 29.0 H Creatinine 1.57 H Est GFR ( Amer) 39 L Est GFR (Non-Af Amer) 32 L BUN/Creatinine Ratio 18.5 Glucose 212 H Calcium 8.9 Phosphorus 3.7 Magnesium 1.5 L Total Bilirubin 0.3 AST 76 H ALT 101 H Alkaline Phosphatase 239 H Total Creatine Kinase CK-MB (CK-2) Myoglobin Troponin I High Sens Total Protein 6.9 Albumin 2.5 L Globulin 4.4 Albumin/Globulin Ratio 0.6 01/09/23 20:17 WBC RBC Hgb Hct MCV MCH MCHC RDW Plt Count MPV Neut % (Auto) Lymph % (Auto) Fill[place] % (Auto) Eos % (Auto) Baso % (Auto) Neut # (Auto) Lymph # (Auto) Fill[place] # (Auto) Eos # (Auto) Baso # (Auto) Abs Immat Gran (auto) Imm/Tot Granulo (auto) PT INR APTT Puncture Site ABG pH ABG pCO2 ABG pO2 ABG HCO3 ABG O2 Saturation ABG Base Excess Horacio Test Vent Mode FiO2 Tidal Volume Sodium Potassium Chloride Carbon Dioxide Anion Gap BUN Creatinine Est GFR ( Amer) Est GFR (Non-Af Amer) BUN/Creatinine Ratio Glucose Calcium Phosphorus Magnesium Total Bilirubin AST ALT Alkaline Phosphatase Total Creatine Kinase 42 CK-MB (CK-2) <0.50 Myoglobin Troponin I High Sens 43.9 Total Protein Albumin Globulin Albumin/Globulin Ratio Preliminary micro results at discharge 01/06/23 15:04 Blood Culture Result 1 - Preliminary Blood NO GROWTH AT 36-48 HOURS. FINAL TO FOLLOW. 01/06/23 15:09 - Preliminary Blood NO GROWTH AT 36-48 HOURS. FINAL TO FOLLOW. Discharge Plan Discharge Disposition: Discharge Date/Time: 01/10/23 18:35 Date/Time: 01/10/23 16:11
--- NOTE | 2023-01-10 10:16 | CM.NOTE ---
Rounds made with Dr. Minor, discussed pt's prognosis. Family at bedside.
--- NOTE | 2023-01-10 10:32 | SWNOTE1 ---
SW reached out to [facility] to let them know to cancel precert, pt is not doing well medically at this time.
--- NOTE | 2023-01-10 11:04 | REH.PTDLY ---
Physical Therapy Daily Note PT Daily Note/Assess Start: 01/10/23 11:02 Freq: Status: Active Protocol: Document 01/10/23 09:20 DARELL (Rec: 01/10/23 11:03 DARELL [id number]) Visit Not Completed Visit Not Completed Due to: Medical instability,Nursing request to hold Physical Therapy Daily Note/Assessment Time In 09:20 Time Out 09:21
--- NOTE | 2023-01-10 15:41 | SWNOTE1 ---
SW stopped in to speak with family, they voiced no needs and they are waiting for doctor to come back. SW to follow as needed.
--- NOTE | 2023-01-10 16:04 | RESP.RT ---
Patient terminally weaned and placed on 2 LPM NC.
--- NOTE | 2023-01-10 16:31 | PC.NURSE ---
1545 dr june at bedside, update given. several family members at bedside, stated they are ready for extubation. explained process to family present. 1553 called and spoke with marco antonio camejo, she stated she will not be in to see pt, gave ok to extubate. 1602 RT extubated pt, OG discontinued at same time. o2 2lnc applied for comfort. 1611 RN noted absence of VS, second RN present to verify. 1613 dr june notified of time of .
--- NOTE | 2023-01-10 17:20 | PC.NURSE ---
1720 message left for [facility].
--- NOTE | 2023-01-10 17:27 | PC.NURSE ---
1727 spoke with toney at [facility], eta 30 min. toney stated she will call pts daughter bryan.
--- NOTE | 2023-01-10 18:34 | PC.NURSE ---
home present, daughter bryan in room. taken to exit via cart at 1835.
== END 2023-01-10 18:35 | disposition expired | DRG 689 ==
LOC: ER 15:54 → MS 17:01 → ICU 01-09 20:16
PROVIDERS: Internal Medicine; Physician Assistant; Admitting Provider Family Medicine; Emergency Provider Emergency Medicine; PCP Family Medicine; Visit Provider Family Medicine
DX: N39.0 Urinary tract infection, site not specified (principal); J18.9 Pneumonia, unspecified organism; E87.1 Hypo-osmolality and hyponatremia; I62.9 Nontraumatic intracranial hemorrhage, unspecified; I47.20 Ventricular tachycardia, unspecified; N17.9 Acute kidney failure, unspecified; Z16.24 Resistance to multiple antibiotics; J44.0 Chronic obstructive pulmonary disease with (acute) lower respiratory infection; N18.9 Chronic kidney disease, unspecified; R41.82 Altered mental status, unspecified; R74.01 Elevation of levels of liver transaminase levels; D69.6 Thrombocytopenia, unspecified; D63.1 Anemia in chronic kidney disease; E83.42 Hypomagnesemia; E86.0 Dehydration; R00.1 Bradycardia, unspecified; I44.0 Atrioventricular block, first degree; D50.9 Iron deficiency anemia, unspecified; Z66 Do not resuscitate; Z51.5 Encounter for palliative care; B96.20 Unspecified Escherichia coli [E. coli] as the cause of diseases classified elsewhere; Z82.49 Family history of ischemic heart disease and other diseases of the circulatory system; Z82.3 Family history of stroke; Z82.5 Family history of asthma and other chronic lower respiratory diseases; Z83.3 Family history of diabetes mellitus; Z80.9 Family history of malignant neoplasm, unspecified; Z79.82 Long term (current) use of aspirin; Z79.4 Long term (current) use of insulin; Z79.890 Hormone replacement therapy; Z79.899 Other long term (current) drug therapy; Z88.1 Allergy status to other antibiotic agents; Z88.2 Allergy status to sulfonamides; Z88.8 Allergy status to other drugs, medicaments and biological substances; Z91.048 Other nonmedicinal substance allergy status
CPT/HCPCS: 36410; 36415; 36600; 51702; 70450; 71045; 76705; 80053; 81001; 82009; 82550; 82553; 82805; 82948; 83605; 83735; 83874; 84100; 84484; 85025; 85610; 85730; 87040; 87086; 87150; 87186; 92950; 93005; 94002; 94003; 94640; 94667; 94668; 94761; 96361; 96365; 96366; 96367; 96368; 96375; 96376; 97162; 97165; 97530; 97535; 99285; C1887